=== PATIENT | female | born 1965 | race Hispanic/Latino ===

== ENCOUNTER → 2020-12-09 | Outpatient (CLI) | payer OTHER | END | disposition home or self-care (01) | LOC: RAH 10:45 | PROVIDERS: ATTEND Physical Medicine & Rehabilitation | DX: M47.816 Spondylosis without myelopathy or radiculopathy, lumbar region (principal) | CPT/HCPCS: 72114 ==

== ENCOUNTER 2021-02-20 11:41 | Emergency (ER) | payer OTHER ==
[~2021-02-20] VITALS: Ht 160 cm; Wt 72.6 kg
[2021-02-20 11:42] VITALS: BP 163/97
[2021-02-20 13:17] VITALS: BP 183/107
[2021-02-20] MEDS ORDERED: NIFEDIPINE 10 MG CAP PO SCH (13:30)
[2021-02-20 14:19] LABS: BASOPHILS % (AUTO) 1.8 % (0.0-5.0); EOSINOPHILS % (AUTO) 2.4 % (0.0-8.0); HEMATOCRIT 41.5 % (36-48); LYMPHOCYTES % (AUTO) 22.2 % (21.0-51.0); MEAN CORPUSCULAR HEMOGLOBIN 28.7 pg (27.0-33.0); MEAN CORPUSCULAR HGB CONC 33.5 g/dL (32.0-36.0); MEAN CORPUSCULAR VOLUME 85.7 fL (79-99); MONOCYTES % (AUTO) 5.2 % (3.0-13.0); NEUTROPHILS % (AUTO) 68.1 % (40.0-77.0); PLATELET COUNT (AUTO) 317 K/uL (130-400); RED BLOOD CELL COUNT(AUTO) 4.84 MIL/uL (4.00-5.50); RED CELL DISTRIBUTION WIDTH 13.1 % (11.0-15.5); WHITE BLOOD COUNT (AUTO) 7.9 K/uL (4.8-10.8)
[2021-02-20 14:22] VITALS: BP 137/67
[2021-02-20 14:22] LABS: APPEARANCE,URINE Clear (CLEAR); BILIRUBIN,URINE Negative (NEGATIVE); COLOR,URINE Yellow (YELLOW); GLUCOSE, URINE (UA) Negative (NEGATIVE); KETONES,URINE Negative (NEGATIVE); LEUKOCYTE ESTERASE ,URINE Negative (NEGATIVE); NITRATE,URINE Negative (NEGATIVE); OCCULT BLOOD,URINE Negative (NEGATIVE); PH,URINE 7.5 (5.0-8.0); PROTEIN,URINE Negative (NEGATIVE); UROBILINOGEN,URINE 0.2 mg/dL (0.2-1.0)
[2021-02-20 14:30] LABS: AMPHET/METH SCREEN,URINE NEGATIVE (NEGATIVE); BARBITURATE SCREEN, URINE NEGATIVE (NEGATIVE); BENZODIAZEPINES SCREEN,URINE NEGATIVE (NEGATIVE); CANNABINOID SCREEN,URINE NEGATIVE (NEGATIVE); COCAINE SCREEN,URINE NEGATIVE (NEGATIVE); OPIATE SCREEN,URINE NEGATIVE (NEGATIVE); PHENCYCLIDINE SCREEN,URINE NEGATIVE (NEGATIVE)
[2021-02-20 14:31] LABS: CREATININE 0.7 mg/dL (0.5-1.5); POTASSIUM 4.1 mmol/L (3.5-5.1)
[2021-02-20 14:36] LABS: ALBUMIN 4.1 g/dL (3.5-5.0); BILIRUBIN,TOTAL 0.6 mg/dL (0.2-1.0)
[2021-02-20] MEDS ORDERED: ALPR0.25 PO (15:15)
[2021-02-20 15:33] VITALS: BP 124/72
== END 2021-02-20 15:55 | disposition home or self-care (01) ==
LOC: EDH 11:41
DX: I10 Essential (primary) hypertension (principal); F41.9 Anxiety disorder, unspecified; R00.2 Palpitations; Z79.899 Other long term (current) drug therapy
CPT/HCPCS: 36415; 71045; 80053; 80305; 81003; 84484; 85025; 93005

== ENCOUNTER 2021-05-21 20:24 | Emergency (ER) | payer OTHER ==
[~2021-05-21] VITALS: Ht 157.5 cm; Wt 73.0 kg
[~2021-05-21 20:24] MED LIST: ALPR0.25 PO
[2021-05-21 21:19] LABS: APPEARANCE,URINE Clear (CLEAR); BILIRUBIN,URINE Negative (NEGATIVE); COLOR,URINE Yellow (YELLOW); GLUCOSE, URINE (UA) Negative (NEGATIVE); KETONES,URINE Negative (NEGATIVE); LEUKOCYTE ESTERASE ,URINE Trace (NEGATIVE); NITRATE,URINE Negative (NEGATIVE); OCCULT BLOOD,URINE Negative (NEGATIVE); PROTEIN,URINE Negative (NEGATIVE); UROBILINOGEN,URINE 0.2 mg/dL (0.2-1.0)
[2021-05-21] MEDS ORDERED: HYDRALAZINE 20MG/ML VIAL ONE (21:19)
[2021-05-21 21:20] LABS: BASOPHILS % (AUTO) 1.6 % (0.0-5.0); EOSINOPHILS % (AUTO) 3.3 % (0.0-8.0); HEMATOCRIT 41.3 % (36-48); LYMPHOCYTES % (AUTO) 33.4 % (21.0-51.0); MEAN CORPUSCULAR HEMOGLOBIN 28.5 pg (27.0-33.0); MEAN CORPUSCULAR HGB CONC 33.2 g/dL (32.0-36.0); MEAN CORPUSCULAR VOLUME 85.9 fL (79-99); MONOCYTES % (AUTO) 6.9 % (3.0-13.0); NEUTROPHILS % (AUTO) 54.4 % (40.0-77.0); PLATELET COUNT (AUTO) 341 K/uL (130-400); RED BLOOD CELL COUNT(AUTO) 4.81 MIL/uL (4.00-5.50); RED CELL DISTRIBUTION WIDTH 13.1 % (11.0-15.5); WHITE BLOOD COUNT (AUTO) 7.7 K/uL (4.8-10.8)
[2021-05-21 21:27] LABS: AMPHET/METH SCREEN,URINE NEGATIVE (NEGATIVE); BARBITURATE SCREEN, URINE NEGATIVE (NEGATIVE); BENZODIAZEPINES SCREEN,URINE NEGATIVE (NEGATIVE); CANNABINOID SCREEN,URINE NEGATIVE (NEGATIVE); COCAINE SCREEN,URINE NEGATIVE (NEGATIVE); OPIATE SCREEN,URINE NEGATIVE (NEGATIVE); PHENCYCLIDINE SCREEN,URINE NEGATIVE (NEGATIVE)
[2021-05-21] MEDS ORDERED: HYDRALAZINE 20MG/ML VIAL IV SCH (21:30)
[2021-05-21 21:37] LABS: CREATININE 0.8 mg/dL (0.5-1.5); POTASSIUM 3.6 mmol/L (3.5-5.1)
[2021-05-21 21:41] LABS: ALBUMIN 4.1 g/dL (3.5-5.0); BILIRUBIN,TOTAL 0.3 mg/dL (0.2-1.0)
[2021-05-21 21:43] LABS: B-TYPE NATRIURETIC PEPTIDE 5 pg/mL (0-100)
[2021-05-21 21:43] LABS: BACTERIA,URINE None Seen /HPF (None Seen); RBC,URINE None Seen /HPF (0-1); WBC,URINE 0-1 /HPF (0-1)
[2021-05-21 21:51] VITALS: BP 147/88
[2021-05-21] MEDS ORDERED: HYDR25TA PO (22:01)
== END 2021-05-21 22:18 | disposition home or self-care (01) ==
LOC: EDH 20:24
DX: F41.9 Anxiety disorder, unspecified (principal); I10 Essential (primary) hypertension; Z79.899 Other long term (current) drug therapy; Z90.49 Acquired absence of other specified parts of digestive tract
CPT/HCPCS: 36415; 71045; 80053; 80305; 81001; 82550; 83880; 84484; 85025; 93005; 96374; 99285; J0360